=== PATIENT | female | born 1960 | race Caucasian/White ===

== ENCOUNTER 2017-01-09 00:21 | Emergency (ER) | payer OTHER ==
[~2017-01-09] VITALS: Ht 160 cm; Wt 66.9 kg
[2017-01-09 01:11] VITALS: BP 141/88
== END 2017-01-09 01:11 | disposition home or self-care (01) ==
LOC: ED 00:21
DX: S50.11XA Contusion of right forearm, initial encounter (principal); G89.29 Other chronic pain; M54.9 Dorsalgia, unspecified; W22.8XXA Striking against or struck by other objects, initial encounter; Y93.89 Activity, other specified; Y99.8 Other external cause status; Y92.89 Other specified places as the place of occurrence of the external cause

== ENCOUNTER 2017-06-16 01:14 | Emergency (ER) | payer OTHER ==
[2017-06-16 02:10] VITALS: BP 168/91
== END 2017-06-16 02:10 | disposition home or self-care (01) ==
LOC: ED 01:14
DX: H66.91 Otitis media, unspecified, right ear (principal)

== ENCOUNTER 2018-01-22 03:27 | Emergency (ER) | payer OTHER ==
[~2018-01-22] VITALS: Ht 160 cm; Wt 66.2 kg
[2018-01-22 04:28] LABS: BASOPHIL % 0.6 % (0-2); PLATELET COUNT 226 x10^3mcL (130-400); RED CELL DISTRIBUTION WIDTH 13.8 % (11.5-14.5)
[2018-01-22 04:37] LABS: CALCIUM 9.9 mg/dL (8.5-10.1); CHLORIDE SERUM 104 mmol/L (98-107); GFR1 > 60 mL/min; GLUCOSE SERUM 122 mg/dL (74-106); POTASSIUM SERUM 3.5 mmol/L (3.5-5.1); SODIUM SERUM 143 mmol/L (136-145)
[2018-01-22 04:42] LABS: ALBUMIN 3.4 g/dL (3.4-5.0); ALKALINE PHOSPHATASE 111 U/L (46-116); ALT/SGPT 28 U/L (14-59); AST/SGOT 18 U/L (15-37); BILIRUBIN TOTAL 0.58 mg/dL (0.20-1.00); LIPASE 141 IU/L (73-393); TOTAL PROTEIN, SERUM 7.4 g/dL (6.4-8.2)
[2018-01-22 05:47] VITALS: BP 146/87
== END 2018-01-22 05:48 | disposition home or self-care (01) ==
LOC: ED 03:27
PROVIDERS: Emergency Medicine
DX: H60.91 Unspecified otitis externa, right ear (principal); R10.13 Epigastric pain; G89.29 Other chronic pain; M54.9 Dorsalgia, unspecified
CPT/HCPCS: J2270; J2405; J7030; Q0162

== ENCOUNTER 2019-09-05 17:04 | Emergency (ER) | payer OTHER ==
[~2019-09-05] VITALS: Ht 160 cm; Wt 63.5 kg
[2019-09-05 17:29] VITALS: Ht 160 cm; Wt 63.5 kg
[2019-09-05 20:08] VITALS: BP 128/72
== END 2019-09-05 20:08 | disposition home or self-care (01) ==
LOC: ED 17:04
DX: S82.041A Displaced comminuted fracture of right patella, initial encounter for closed fracture (principal); S90.31XA Contusion of right foot, initial encounter; S60.221A Contusion of right hand, initial encounter; R03.0 Elevated blood-pressure reading, without diagnosis of hypertension; V49.49XA Driver injured in collision with other motor vehicles in traffic accident, initial encounter; Y93.I9 Activity, other involving external motion; Y92.413 State road as the place of occurrence of the external cause; Y99.8 Other external cause status
CPT/HCPCS: J2270; Q0092; Q0162

== ENCOUNTER 2019-09-25 07:30 | Inpatient (IN) | payer OTHER ==
[~2019-09-25] VITALS: Ht 160 cm; Wt 69.4 kg
[2019-09-28] MEDS ORDERED: TENORMIN50 MG PO (20:30)
[2019-09-28 21:18] VITALS: BP 168/92
[2019-09-29 05:25] VITALS: BP 133/67
[2019-09-29 07:36] VITALS: BP 122/64
[2019-09-29 07:46] LABS: BASOPHIL % 0.8 % (0-2); PLATELET COUNT 290 x10^3mcL (130-400); RED CELL DISTRIBUTION WIDTH 13.8 % (11.5-14.5)
[2019-09-29 08:36] LABS: CALCIUM 8.3 mg/dL (8.5-10.1); CARBON DIOXIDE 28.2 mmol/L (21-32); CHLORIDE SERUM 110 mmol/L (98-107); CREATININE SERUM 0.8 mg/dL (0.6-1.0); GFR1 > 60 mL/min; GLUCOSE SERUM 98 mg/dL (74-106); POTASSIUM SERUM 4.1 mmol/L (3.5-5.1); SODIUM SERUM 144 mmol/L (136-145)
[2019-09-29 14:25] VITALS: BP 123/67
== END 2019-09-29 16:34 | disposition home or self-care (01) | DRG 320 ==
LOC: DU 07:30 → MU 09-28 19:01
PROVIDERS: ADMIT Orthopaedic Surgery
PROC: 0QSD04Z Reposition Right Patella with Internal Fixation Device, Open Approach (ICD-10-PCS; principal; 2019-09-29 08:00)
DX: S82.091A Other fracture of right patella, initial encounter for closed fracture (principal); F17.200 Nicotine dependence, unspecified, uncomplicated; V89.2XXA Person injured in unspecified motor-vehicle accident, traffic, initial encounter; Y93.89 Activity, other specified; Y92.098 Other place in other non-institutional residence as the place of occurrence of the external cause; Y99.8 Other external cause status
CPT/HCPCS: 83880; G0378; J0690; J1170; J2270; J2405; J3010; J3490; J7030